=== PATIENT | female | born 1940 | race Caucasian/White ===

== ENCOUNTER 2021-11-05 13:59 | Inpatient (IN) | payer OTHER ==
[~2021-11-05] VITALS: Ht 149.9 cm; Wt 54.4 kg
--- NOTE | ~2021-11-05 | EMS ---
[address] [address] EMS Patient Care Report Name: EMERSON STEWARD Room #: 435-P [facility] IN M.R.#: [id number] Admission: 11/05/21 Attend Phys: Salazar Appiah MD Discharge: 11/07/21 Date of : 42 Report #: [id number] THIS REPORT FOR: //name// Report Transmitted: 11/08/2021 09:54 EMS Care Summary [place], [place]/[facility] Incident [id number] @ 11/05/2021 13:30 Incident Location [address] [place] [address] Patient EMERSON HUIZAR Female, 81 Years 1940 Patient Address [address] [place] [id number] Patient History Chronic Kidney Disease, Patient Allergies No known allergies, Patient Medications Clopidogrel, Chief Complaint Hemorrhage Disposition Transported No Lights/[place] Dispatch Reason Sick Person Transported To [facility] Narrative M36 dispatched for a 81 year old female conscious and breathing having a hemorrhage from the chest dialysis port. Bleeding is attempted to be controlled by staff. Patient advises of dizziness. M36 responds to the scene emergent using lights and sirens. Arrival at the scene patient is located inside the clinic sitting down in a chair. Bleeding is being controlled by the paper [address] [address] EMS Patient Care Report Name: EMERSON STEWARD Room #: 435-P [facility] IN M.R.#: [id number] Admission: 11/05/21 Attend Phys: Salazar Appiah MD Discharge: 11/07/21 Date of : 42 Report #: [id number] towels. Patient acknowledge EMS presence is GCS15, AAOx4. Patient does not speak Andorran and grandson on scene is able to translate for EMS. Patient denies any chest pain or SOB. Family advises that the patient had issues with the Dialysis catheter on Monday and that it was replaced this morning. Staff advises that the patient was getting ready to begin dialysis and that the facility noticed that the patient was covered in blood. Bleeding is controlled with 5x9 and direct pressure. Patient is moved to the stretcher and placed in the supine position and secured using seatbelts and rails. Patient is wheeled to the ambulance and placed on the monitor to obtain VS and ECG. IV access is attempted and unsuccessful with extravasation noted to the right antecubital region. Transport is initiated to [facility]. Assessment conducted. Bleeding is controlled and no other life threatening injuries are noted. Language barrier throughout transport. Arrival at the receiving facility patient condition is stable and hypotension is noted. Patient is offloaded and taken to ED room 2. RN is given report and transfer of care is completed. Signatures are obtained. Patient is unable to sign due to Language barrier. M36 returns to service. Initial Vitals @13:46P: 94,R: 18,BP: 108/68,Pain: 0/10,GCS: 15,SpO2: 98,Revised Trauma: 12, @13:56P: 85,R: 18,BP: 78/51,Pain: 0/10,GCS: 15,SpO2: 98,Revised Trauma: 11, Assessments @13:41MENTAL:No Abnormalities,SKIN:Diaphoresis,Pale,HEENT:Head/Face: No Abnormalities,Eyes: No Abnormalities,Neck/Airway: No Abnormalities,LUNG SOUNDS:General: No Abnormalities,Left Upper: No Abnormalities,Right Upper: No Abnormalities,Left Lower: No Abnormalities,Right Lower: No Abnormalities,ABDOMEN:General: No Abnormalities,Left Upper: No Abnormalities,Right Upper: No Abnormalities,Left Lower: No Abnormalities,Right Lower: No Abnormalities,PELVIS//GI:No Abnormalities,EXTREMITIES:Left Arm: No Abnormalities,Right Arm: No Abnormalities,Left Leg: No Abnormalities,Right Leg: No Abnormalities,PULSE:Radial: 2+ Normal,NEURO:No Abnormalities, Impression Hemorrhage Procedures @13:40 ALS Assessment Response: UnchangedSucceeded @13:45 IV Therapy - Saline Lock 8cc (20 ga) Site: Antecubital-Right Response: UnchangedFailed @13:41 Bleeding Control Response: UnchangedSucceeded @13:45 3-Lead ECG Response: UnchangedSucceeded [address] [address] EMS Patient Care Report Name: SERGO STEWARDINA Room #: 435-P [facility] IN M.R.#: [id number] Admission: 11/05/21 Attend Phys: Salazar Appiah MD Discharge: 11/07/21 Date of : 42 Report #: [id number] Timeline 13:26,Call Received 13:26,Dispatch Notified 13:30,Dispatched 13:30,En Route 13:38,On Scene 13:40,At Patient 13:40,ALS Assessment,Response: UnchangedSucceeded, 13:41,Bleeding Control,Response: UnchangedSucceeded, 13:45,3-Lead ECG,Response: UnchangedSucceeded, 13:45,IV Therapy - Saline Lock 8cc 20 ga Site: Antecubital-Right,Response: UnchangedFailed, 13:46,BP: 108/68 M,PULSE: 94,RR: 18 R,SPO2: 98 Ox,ETCO2: ,BG: ,PAIN: 0,GCS: 15, 13:51,Depart Scene 13:56,BP: 78/51 M,PULSE: 85,RR: 18 R,SPO2: 98 Ox,ETCO2: ,BG: ,PAIN: 0,GCS: 15, 13:56,At Destination 14:19,Call Closed Disclaimer v1.1 Copyright 2021 [employer] This EMS Care Summary contains data elements from the applicable legal record (which may be displayed differently). It is designed to provide pertinent information for the following purposes: continuity of care, clinical quality, and state data reporting. The complete legal record is available to ED staff and administrators of the receiving hospital in [employer]'s Patient Tracker. All data is provided "as is."
[2021-11-05 14:01] VITALS: BP 85/38
[2021-11-05 14:18] LABS: ABSOLUTE NEUTROPHILS 5.3 thou/uL (1.4-8.2); BASOPHILS 0.6 % (0.0-2.0); EOSINOPHILS 5.1 % (0.0-3.0); HEMATOCRIT 24.3 % (37.0-47.0); HEMOGLOBIN 8.2 gm/dL (12.0-15.0); LYMPHOCYTES 14.5 % (24.0-44.0); MCH 32.9 pg (26.0-34.0); MCHC 33.7 g/dL (28.0-37.0); MCV 97.7 fL (80.0-100.0); MONOCYTES 8.8 % (1.0-8.0); PLATELET COUNT 164 thou/uL (150-400); RBC 2.49 mil/uL (4.20-5.00); RDW 15.1 % (10.5-14.5); WBC 7.5 thou/uL (4.0-11.0)
[2021-11-05 14:38] LABS: CALCIUM 7.4 mg/dL (8.5-10.1); CREATININE 9.9 mg/dL (0.6-1.0); POTASSIUM 5.7 mmol/L (3.5-5.1)
[2021-11-05] MEDS ORDERED: ACCUNEB SO1.25 MG/1 INH (15:19)
[2021-11-05] MEDS ORDERED: DEXILANT60 MG PO (15:20)
[2021-11-05] MEDS ORDERED: BACTRIM DS TAB1 EAC1 PO (15:20)
[2021-11-05] MEDS ORDERED: RENAPLEX TABLE1 EACH PO (15:21)
[2021-11-05] MEDS ORDERED: LIPITOR40 MG PO (15:23)
[2021-11-05 15:47] VITALS: BP 90/38; BP 91/48; BP 92/46; BP 93/34
--- NOTE | 2021-11-05 17:53 | NUR ---
PT DAUGHTER, SHAUNA, [phone] CELL
--- NOTE | 2021-11-05 21:11 | NUR ---
OTHER DAUGHTER Kristina [phone] CALL ANYTIME, OKAY TO LEAVE DETAILED MESSAGE
--- NOTE | 2021-11-05 21:26 | NUR ---
PT SPEAKS JACQUELYN
[2021-11-05 21:30] LABS: HEMATOCRIT 24.2 % (37.0-47.0); HEMOGLOBIN 8.2 gm/dL (12.0-15.0)
[2021-11-05 22:18] VITALS: BP 95/48
--- NOTE | 2021-11-06 05:43 | NUR ---
PATIENT ALERT AND ORIENTED. PATIENT CONFUSED THIS SHIFT PER INTERPLATER. PATIENT WAS UPSET D/T MOVING HER FROM 441 TO 435 PATIENT EDUCATED THE NEED OF HER BEING NEED OF BEING NEAR THE NURSES STATION. INTERPLATER CALLED DURING ASSESSMENT BUT PATIENT WAS A POOR HISTORIAN. PATIENT DENIED PAIN OR DISCOMFORT. PATIENT NEEDS MAXIMUM ASSIST WITH ADL, BED ALARM, TRANSFER AND TOILETING. PATIENT IN BED ASLEEP AT THIS TIME BREATHING REGULAR AND UNLABORED.
[2021-11-06 07:33] VITALS: BP 109/55
--- NOTE | 2021-11-06 09:03 | NUR ---
ASSUMED CARE OF PATIENT THIS AM. PATIENT RESTING WITH EYES CLOSED SUPINE IN BED. TELEMETY MONITOR ON BEDSIDE TABLE. PATIENT REFUSED TO ALLOW ME TO REPLACE LEADS AT THIS TIME. NO COMPLAINTS OR EVENTS AT THIS TIME. WILL REACH OUT TO DAUGHTER TO UPDATE ON PLAN OF CARE FOR TODAY.
[2021-11-06 11:25] VITALS: BP 113/64
[2021-11-06 15:11] LABS: HEMATOCRIT 23.6 % (37.0-47.0); HEMOGLOBIN 7.7 gm/dL (12.0-15.0); MCH 30.7 pg (26.0-34.0); MCHC 32.7 g/dL (28.0-37.0); MCV 93.7 fL (80.0-100.0); RBC 2.52 mil/uL (4.20-5.00); RDW 18.8 % (10.5-14.5); WBC 5.7 thou/uL (4.0-11.0)
[2021-11-06 19:22] VITALS: BP 111/66
--- NOTE | 2021-11-07 01:32 | NUR ---
PT IS A/O X4 AND IS UP WITH ASSISANCE TO THE BSC. DOES NOT SPEAK MUCH CITIZEN OF [place] SO IS DIFFICULT TO COMMUNICATE. PT REMOVED RIGHT EJ DESPITE MULTIPLE ATTEMPTS AT EXPLAINING ITS IMPORTANCE. PT IS ON RA. REFUSING TELE MONITOR. VSS. AFEBRILE. VOIDS PER BSC. ONE LARGE BM THIS SHIFT. SHEETS AND NEW GOWN PROVIDED. FALL PRECAUTIONS IN PLACE, CALL LIGHT IS WITHIN REACH. PT YELLS OUT FOR ASSISTANCE. IN ROOM NEAR NURSES STATION WITH FREQUENT CHECKS.
[2021-11-07 06:06] LABS: HEP B SURFACE Ab(ANTI-HBS Reactive (()); HEPATITIS B SURFACE AG Negative (Negative)
[2021-11-07 07:00] VITALS: BP 124/67
--- NOTE | 2021-11-07 10:26 | NUR ---
Patient discharge with homehealth PT/OT. spoke with family, family wanted [facility] PT. PT will be start next Monday, Case mamagement will set up tomorrow for patient.
[2021-11-07] MEDS ORDERED: NEPHRO-VITE RX1 TA1 PO (10:33)
[2021-11-07] MEDS ORDERED: ACETAMINOPHEN325 M1 PO (10:33)
[2021-11-07 16:15] VITALS: BP 131/75
--- NOTE | 2021-11-07 17:36 | NUR ---
Patient resting in bed and up in the chair. eating 100 % of her meals. Patient being discharge, [facility] unable to take patient for homehealth PT. [facility] for PT. However, patient had home health aid service in place. Spoke with hospitalist to call Daughter Joselito [phone], and Hospitalist try to call her three times, but it go the straight voice mail, Hospitalist did leave message. Mrs. Yee said that she will be by around [phone] to [phone] to order picker patient multiple times to have her order picker patient, but unable to reach her, the call go straight to voice mail. RN able to get in touch with Mrs. Yee at [phone]. Patient family say she will come to take Ms. Del Valle home in 40 mins.
[2021-11-07 17:46] VITALS: BP 131/75
--- NOTE | 2021-11-08 05:42 | NUR ---
SENT REFERRAL TO [facility], SINCE [facility] CAN'T TAKE PATIENT DUE TO STAFFING ISSUES. PATIENT AND DAUGHTER AWARE OF THE CHANGE. DAUGHTER DID NOT CALL WITH ISSUES WITH CHANGE, SENT FAX TO [facility] WITH FACE SHEET, H&P, OT/PT/MED LIST, D/C SUMMARY AND ORDER. RECEIVED CONFIRMATION FROM [facility] VIA 4S CRITICAL SYSTEMS TECHNICIAN. [facility]
== END 2021-11-07 18:00 | disposition home health service (06) | DRG 263 ==
LOC: ER 13:59 → EROBS 15:46 → 4S 21:48
PROVIDERS: Emergency Medicine; Nurse Practitioner Family; ADMIT Hospitalist; ATTEND Hospitalist
PROC: 05Q Upper Veins, Repair (ICD-10-PCS; principal; 2021-11-05)
PROC: 30233N1 Transfusion of Nonautologous Red Blood Cells into Peripheral Vein, Percutaneous Approach (ICD-10-PCS; principal; 2021-11-05)
PROC: 5A1D70Z Performance of Urinary Filtration, Intermittent, Less than 6 Hours Per Day (ICD-10-PCS; 2021-11-06)
PROC: 5A1D70Z Performance of Urinary Filtration, Intermittent, Less than 6 Hours Per Day (ICD-10-PCS; 2021-11-07)
DX: T82.838A Hemorrhage due to vascular prosthetic devices, implants and grafts, initial encounter (principal); N18.6 End stage renal disease; D62 Acute posthemorrhagic anemia; E87.5 Hyperkalemia; Y84.1 Kidney dialysis as the cause of abnormal reaction of the patient, or of later complication, without mention of misadventure at the time of the procedure; I95.9 Hypotension, unspecified; K21.9 Gastro-esophageal reflux disease without esophagitis; Z20.822 Contact with and (suspected) exposure to COVID-19; E78.5 Hyperlipidemia, unspecified; D63.8 Anemia in other chronic diseases classified elsewhere; E66.01 Morbid (severe) obesity due to excess calories; Z99.2 Dependence on renal dialysis; Z91.15 Patient's noncompliance with renal dialysis; Y92.89 Other specified places as the place of occurrence of the external cause; Z88.8 Allergy status to other drugs, medicaments and biological substances; Z88.1 Allergy status to other antibiotic agents; Z91.040 Latex allergy status; Z68.24 Body mass index [BMI] 24.0-24.9, adult
CPT/HCPCS: 10100; 32100